=== PATIENT | female | born 1980 | race Caucasian/White ===

== ENCOUNTER 2017-09-06 14:46 | Emergency (ER) | payer MEDICAID ==
[~2017-09-06] VITALS: Ht 157.5 cm; Wt 51.8 kg
[2017-09-06] MEDS ORDERED: LISI-661 PO (15:03)
[2017-09-06 15:41] VITALS: BP 126/86
[2017-09-06 16:30] LABS: APPEARANCE,URINE CLOUDY (CLEAR); GLUCOSE, URINE (UA) NEGATIVE (NEGATIVE); KETONES,URINE NEGATIVE (NEGATIVE); LEUKOCYTE ESTERASE ,URINE MODERATE (NEGATIVE); PH,URINE 6.5 (5.0-8.0); PROTEIN,URINE POS 1+ (NEGATIVE)
[2017-09-06 17:11] LABS: OCCULT BLOOD,URINE MODERATE (NEGATIVE)
[2017-09-06 17:12] LABS: SQUAMOUS EPITHELIAL CELL,UR Moderate /LPF (None Seen); WBC,URINE 26-50 /HPF (0-5)
== END 2017-09-06 16:22 | disposition home or self-care (01) ==
LOC: EMS 14:48
DX: N30.90 Cystitis, unspecified without hematuria (principal); N39.0 Urinary tract infection, site not specified; I10 Essential (primary) hypertension
CPT/HCPCS: 81025; 87086; 99284

== ENCOUNTER 2018-04-13 09:16 | Emergency (ER) | payer MEDICAID ==
[~2018-04-13] VITALS: Ht 157.5 cm; Wt 54.5 kg
[~2018-04-13 09:16] MED LIST: LISI-661 PO
[2018-04-13 09:20] VITALS: BP 149/69
[2018-04-13] MEDS ORDERED: KETOROLAC TROMETHAMINE 60 MG/2 ML VIAL IM ONE (10:00)
== END 2018-04-13 10:18 | disposition home or self-care (01) ==
LOC: EMS 09:18
DX: S39.012A Strain of muscle, fascia and tendon of lower back, initial encounter (principal); S13.4XXA Sprain of ligaments of cervical spine, initial encounter; I10 Essential (primary) hypertension; V43.62XA Car passenger injured in collision with other type car in traffic accident, initial encounter; Y93.89 Activity, other specified; Y92.89 Other specified places as the place of occurrence of the external cause; Y99.8 Other external cause status
CPT/HCPCS: 96372; 99283; J1885